=== PATIENT | female | born 1985 | race Caucasian/White ===

== ENCOUNTER 2017-07-13 18:40 | Emergency (ER) | payer OTHER ==
[~2017-07-13] VITALS: Ht 162.6 cm; Wt 68.0 kg
[~2017-07-13 18:40] MED LIST: FOLIC + B12 TAB1 TAB PO
[2017-07-13] MEDS ORDERED: ATABEX EC CAPL1 EACH (19:43)
== END 2017-07-14 00:42 | disposition home or self-care (01) ==
LOC: ER 18:40
DX: O26.891 Other specified pregnancy related conditions, first trimester (principal); R10.2 Pelvic and perineal pain; Z34.01 Encounter for supervision of normal first pregnancy, first trimester

== ENCOUNTER 2017-12-16 14:10 | Inpatient (IN) | payer OTHER ==
[~2017-12-16] VITALS: Ht 162.6 cm; Wt 77.6 kg
[~2017-12-16 14:10] MED LIST changes: +ATABEX EC CAPL1 EACH
== END 2017-12-25 12:14 | DRG 775 ==
LOC: LDR 12-23 12:53 → OB/GYN 12-23 18:49 → LDR 12-29 14:10
PROC: 0UQMXZZ Repair Vulva, External Approach (ICD-10-PCS; principal; 2017-12-23)
PROC: 10E0XZZ Delivery of Products of Conception, External Approach (ICD-10-PCS; 2017-12-23)
PROC: 4A1HXCZ Monitoring of Products of Conception, Cardiac Rate, External Approach (ICD-10-PCS; 2017-12-23)
DX: O71.82 Other specified trauma to perineum and vulva (principal); Z3A.39 39 weeks gestation of pregnancy; Z37.0 Single live birth
CPT/HCPCS: 240